=== PATIENT | male | born 1960 | race Caucasian/White ===

== ENCOUNTER 2022-03-29 11:31 | Outpatient (CLI) | payer OTHER, SELFPAY ==
[2022-03-29 17:55] LABS: Cholesterol* 114 mg/dL (90-199); HDL Cholesterol* 50 mg/dL (>=40); LDL Cholesterol Calculated 48 mg/dL (<100); Triglycerides* 81 mg/dL (40-149)
[2022-03-29 18:26] LABS: PSA Screen* 0.76 ng/mL (0.10-4.00)
== END 2022-03-29 11:32 | disposition home or self-care (01) ==
PROVIDERS: PCP Family Medicine; Visit Provider Family Medicine
DX: E11.9 Type 2 diabetes mellitus without complications (principal); E78.5 Hyperlipidemia, unspecified; I10 Essential (primary) hypertension; Z12.5 Encounter for screening for malignant neoplasm of prostate
CPT/HCPCS: 80061; 84153

== ENCOUNTER 2022-06-28 11:31 | Outpatient (CLI) | payer OTHER, SELFPAY ==
[2022-06-28 17:13] LABS: Chloride* 99 mmol/L (96-114)
[2022-06-28 17:14] LABS: Potassium* 4.8 mmol/L (3.6-5.1); Sodium* 138 mmol/L (135-149)
[2022-06-28 17:16] LABS: Carbon Dioxide* 30 mmol/L (20-32); Creatinine* 1.5 mg/dL (0.5-1.5); Estimated Glomerular Filt Rate 53 ml/min
[2022-06-28 17:17] LABS: Blood Urea Nitrogen* 28 mg/dL (7-30); Calcium* 10.6 mg/dL (8.4-10.6); Glucose* 99 mg/dL (60-115)
== END 2022-06-28 11:32 | disposition home or self-care (01) ==
PROVIDERS: PCP Family Medicine; Visit Provider Family Medicine
DX: I10 Essential (primary) hypertension; E11.9 Type 2 diabetes mellitus without complications; E78.5 Hyperlipidemia, unspecified
CPT/HCPCS: 80048; 80061; 84153

== ENCOUNTER 2022-07-06 10:29 | Outpatient (CLI) | payer OTHER, SELFPAY ==
--- NOTE | 2022-07-06 11:00 | CRLHL7_ITS ---
For Patients: As a result of the Century Cures Act, medical imaging exams and procedure reports are released immediately into your electronic medical record. You may view this report before your referring provider. If you have questions, please contact your health care provider. CLINICAL HISTORY: Left renal cyst COMPARISON: none TECHNIQUE: Ragsdale scale and color Doppler images were acquired of the abdomen. FINDINGS: Complex hypoechoic lesion arising from the left kidney with peripheral calcification noted measuring 5.4 x 6.3 x 5.8 cm. No hydronephrosis. The right kidney measures 10.0cm in length and the left kidney measures 9.3cm in length. The renal cortex appears of normal thickness. The liver parenchyma is slightly coarsened. The gallbladder wall measures 2 millimeters. The common bile duct measures 6 millimeters. A tiny stone may be present within the gallbladder lumen. The pancreas is normal. Normal spleen measuring 10.2 cm. Normal aorta and inferior vena cava. IMPRESSION: Complex cystic lesion arising from the left kidney measuring 5.4 x 6.3 x 5.8 cm. Mild hepatic steatosis. Possible cholelithiasis. Dictated by Elliot Vera MD @ 07/06/2022 12:01:33 PM (Electronically Signed)
== END 2022-07-06 10:30 | disposition home or self-care (01) ==
PROVIDERS: PCP Family Medicine; Visit Provider Family Medicine
DX: N28.1 Cyst of kidney, acquired (principal); K76.0 Fatty (change of) liver, not elsewhere classified; K80.20 Calculus of gallbladder without cholecystitis without obstruction
CPT/HCPCS: 76700

== ENCOUNTER 2022-07-12 07:05 | Outpatient (CLI) | payer OTHER, SELFPAY | END 2022-07-12 07:06 | disposition home or self-care (01) | PROVIDERS: PCP Family Medicine; Visit Provider Surgery | DX: Z12.11 Encounter for screening for malignant neoplasm of colon (principal); K64.8 Other hemorrhoids; K57.30 Diverticulosis of large intestine without perforation or abscess without bleeding | CPT/HCPCS: 45378; 99153; J2250; J3010 ==

== ENCOUNTER 2023-05-18 10:26 | Outpatient (CLI) | payer OTHER, SELFPAY | END 2023-05-18 10:27 | disposition home or self-care (01) | PROVIDERS: PCP Family Medicine; Visit Provider Family Medicine | DX: E11.9 Type 2 diabetes mellitus without complications (principal); I10 Essential (primary) hypertension; E78.5 Hyperlipidemia, unspecified; Z12.5 Encounter for screening for malignant neoplasm of prostate | CPT/HCPCS: 80048; 80061; 84153 ==

== ENCOUNTER 2024-05-28 11:35 | Outpatient (CLI) | payer OTHER, SELFPAY | END 2024-05-28 11:36 | disposition home or self-care (01) | PROVIDERS: PCP Family Medicine; Visit Provider Family Medicine | DX: E11.9 Type 2 diabetes mellitus without complications (principal); E78.2 Mixed hyperlipidemia; I10 Essential (primary) hypertension | CPT/HCPCS: 80048; 80061 ==

== ENCOUNTER 2024-07-24 12:38 | Outpatient (CLI) | payer OTHER, SELFPAY ==
--- NOTE | 2024-07-24 13:00 | CRLHL7_ITS ---
For Patients: As a result of the Century Cures Act, medical imaging exams and procedure reports are released immediately into your electronic medical record. You may view this report before your referring provider. If you have questions, please contact your health care provider. Indication: Low back pain Technique: Multiplanar, multisequence, MRI of the lumbar spine, obtained without contrast. Comparison: Lumbar spine x-ray 07/18/2024 Findings: Lumbar levoconvex curvature, with preserved lordosis. No significant spondylolisthesis. Vertebral body heights are grossly maintained. Scattered degenerative Schmorl`s nodes. No acute osseous abnormality. Bone marrow signal appears within normal limits. The conus medullaris terminates at approximately L1. Large exophytic T1 hypointense, T2 hypointense structure arising from the superior pole left kidney, presumed partially calcified and/or hemorrhagic cyst. Unremarkable SI joints. T12-L1: No neural foraminal or spinal canal stenosis. L1-L2: Mild diffuse disc bulge, right subarticular annular fissure. No neural foraminal or spinal canal stenosis. L2-L3: Mild diffuse disc bulge, mild facet arthropathy. No neural foraminal or spinal canal stenosis. L3-L4: Diffuse disc bulge, small central disc protrusion, facet arthropathy. Mild right, moderate left neural foraminal stenosis. Left extraforaminal disc protrusion impinging the extra foraminal left L3 nerve root. Mild spinal canal narrowing. L4-L5: Diffuse disc bulge, facet arthropathy. Suspect right foraminal cranial disc extrusion impinging the exiting right L4 nerve root. Mild left, moderate right neural foraminal stenosis. Lateral recess narrowing without central spinal canal stenosis. L5-S1: Diffuse disc bulge, broad-based left subarticular disc protrusion, impinging the descending left S1 nerve root. Suspect partially calcified anteriorly directed left facet joint synovial cyst, impinging the exiting left L5 nerve root. No right, moderately severe left neural foraminal stenosis. No central spinal canal stenosis. Impression: 1. Lumbar spondylosis and levoconvex curvature as detailed. 2. At L3-L4, moderate left neural foraminal stenosis, with left extraforaminal disc protrusion impinging the left L3 nerve root. 3. At L4-L5, moderate right foraminal stenosis with right foraminal cranial disc extrusion impinging the exiting right L4 nerve root. 4. At L5-S1, suspect partially calcified left facet joint synovial cyst impinging the exiting left L5 nerve root, and broad-based left subarticular disc protrusion impinging the descending left S1 nerve root. 5. Large (at least 7 cm) complex presumed left renal cyst, likely partially calcified and/or hemorrhagic. Dictated by Jaida Kramer MD @ 07/25/2024 9:19:10 PM (Electronically Signed)
== END 2024-07-24 12:39 | disposition home or self-care (01) ==
LOC: MRI 12:38
PROVIDERS: PCP Family Medicine; Visit Provider Family Medicine
DX: M54.50 Low back pain, unspecified (principal); M47.896 Other spondylosis, lumbar region; M48.061 Spinal stenosis, lumbar region without neurogenic claudication; M51.26 Other intervertebral disc displacement, lumbar region; M51.27 Other intervertebral disc displacement, lumbosacral region; N28.1 Cyst of kidney, acquired; R29.898 Other symptoms and signs involving the musculoskeletal system
CPT/HCPCS: 72148

== ENCOUNTER 2025-06-17 11:29 | Outpatient (CLI) | payer OTHER, SELFPAY | END 2025-06-17 11:30 | disposition home or self-care (01) | PROVIDERS: PCP Family Medicine; Visit Provider Family Medicine | DX: E78.2 Mixed hyperlipidemia (principal); E11.9 Type 2 diabetes mellitus without complications; Z12.5 Encounter for screening for malignant neoplasm of prostate | CPT/HCPCS: 80048; 80061; G0103 ==